=== PATIENT | male | born 1960 | race Caucasian/White ===

== ENCOUNTER → 2018-03-28 06:27 | Outpatient (CLI) | payer BC, OTHER, SELFPAY ==
--- NOTE | 2018-03-28 12:42 | NEURO ---
NCS and/or EMG Patient Report Ordering Doctor: Vishnu Kilgore DATE OF SERVICE: 03/28/18 Giovanni Mojica is a 58-year-old male presents for electrodiagnostic testing of the lower limbs. He reports numbness and tingling in both feet, progressively worsening for the past several years. Electrodiagnostic findings: Left peroneal motor nerve demonstrates normal distal latency, amplitude with reduced conduction velocity. Right common peroneal nerve demonstrates normal distal latency, with normal amplitude and reduced conduction velocity. Reduced tibial motor conduction velocity noted bilaterally. Prolonged peroneal and tibial F waves. Borderline prolonged H reflex bilaterally. Prolonged distal latency is noted in the sural nerve bilaterally. Reduced sural and superficial peroneal conduction velocities are noted. Needle EMG testing shows no evidence of denervation. Motor unit action potentials were of normal amplitude and duration. Electrodiagnostic impression: This is an abnormal study in the lower limbs 1. Electrodiagnostic findings demonstrate peripheral polyneuropathy with evidence of demyelination. Would consider referral to neurology for further workup and possible nerve biopsy. 2. No electrodiagnostic evidence is noted for lumbar radiculopathy. If there are any further questions, please do not hesitate to contact me.
--- NOTE | 2018-03-28 12:50 | NEURO_ITS ---
NCS and/or EMG Patient Report Ordering Doctor: Vishnu Kilgore DATE OF SERVICE: 03/28/18 Giovanni Mojica is a 58-year-old male presents for electrodiagnostic testing of the lower limbs. He reports numbness and tingling in both feet, progressively worsening for the past several years. Electrodiagnostic findings: Left peroneal motor nerve demonstrates normal distal latency, amplitude with reduced conduction velocity. Right common peroneal nerve demonstrates normal distal latency, with normal amplitude and reduced cond uction velocity. Reduced tibial motor conduction velocity noted bilaterally. Prolonged peroneal and tibial F waves. Borderline prolonged H reflex bilaterally. Prolonged distal latency is noted in the sural nerve bilaterally. Reduced sural and superficial peroneal conduction velocities are noted. Needle EMG testing shows no evidence of denervation. Motor unit action potentials were of normal amplitude and duration. Electrodiagnostic impression: This is an abnormal study in the lower limbs 1. Electrodiagnostic findings demonstrate peripheral polyneuropathy with evidence of demyelination. Would consider referral to neurology for further workup and possible nerve biopsy. 2. No electrodiagnostic evidence is noted for lumbar radiculopathy. If there are any further questions, please do not hesitate to contact me.
== END ==
PROVIDERS: Referring Provider Podiatrist; Visit Provider Podiatrist
DX: G62.9 Polyneuropathy, unspecified (principal)
CPT/HCPCS: 95886; 95913